=== PATIENT | female | born 1975 | race Caucasian/White ===

== ENCOUNTER 2017-03-03 13:16 | Emergency (ER) | payer MEDICAID ==
[~2017-03-03] VITALS: Ht 165.1 cm; Wt 84.0 kg
[2017-03-03 13:19] VITALS: Ht 165.1 cm; Wt 84.0 kg
[2017-03-03] MEDS ORDERED: KETOROLAC 30 MG INJ IM STA (14:18)
[2017-03-03] MEDS ORDERED: ALBUTEROL 0.083% (NEB) 2.5 MG/3 ML AMP HHN STA (14:18)
--- NOTE | 2017-03-03 15:24 | RADRPT ---
PROCEDURE: XR Chest. CLINICAL INDICATION: Cough, chest wall pain TECHNIQUE: Single frontal view of the chest was obtained COMPARISON: None FINDINGS: No pleural effusion or pneumothorax. No consolidation. Unremarkable cardiomediastinal silhouette. No acute osseous abnormality. IMPRESSION: No acute cardiopulmonary disease. RPTAT: EE Kemal Felix Physician Date Time Electronically viewed and signed by Kemal Felix Physician on 03/03/2017 15:24 /
[2017-03-03] MEDS ORDERED: GUAI118L22 PO (15:53)
[2017-03-03] MEDS ORDERED: IBUP400T22 PO (15:53)
[2017-03-03] MEDS ORDERED: LORA10TA3 PO (15:53)
--- NOTE | 2017-03-06 15:01 | ERD ---
ER Documentation Chief Complaint Date/Time DATE: 03/06/17 TIME: 14:58 Chief Complaint FLULIKE SYMPTOMS, COUGH, FEVER, BODYACHE, SORETHROAT X6 DAYS HPI This is a 41-year-old female presenting to emergency department for cough, fever , generalized body aches, sore throat 6 days. Patient states she has a dry nonproductive cough. No shortness of breath or difficulty breathing. No wheezing. Patient reports tactile fevers at home. Patient has sore throat however no difficulty swallowing or drooling. Patient is eating and drinking normally. Patient did not take any medications at home for this. No sick contacts ROS All systems reviewed and are negative except as per history of present illness. Medications Home Meds Active Scripts Loratadine* (Loratadine*) 10 Mg Tablet, 10 MG PO DAILY, #30 TAB Prov:SANDRA WELLINGTON NP 03/03/17 Ibuprofen* (Motrin*) 400 Mg Tab, 400 MG PO Q6, #30 TAB Prov:SANDRA WELLINGTON NP 03/03/17 Guaifenesin/Codeine Phosphate (CHERATUSSIN AC SYRUP) 118 Ml Liquid, 5 ML PO Q4H Y for COUGH, #118 ML Prov:SANDRA WELLINGTON NP 03/03/17 Allergies Allergies: Coded Allergies: No Known Allergy (Unverified , 03/03/17) PMhx/Soc History of Surgery: No Anesthesia Reaction: No Hx Neurological Disorder: No Hx Respiratory Disorders: No Hx Cardiac Disorders: No Hx Psychiatric Problems: No Hx Miscellaneous Medical Probl: No Hx Alcohol Use: No Hx Substance Use: No Hx Tobacco Use: No Physical Exam Vitals Vital Signs Date Time Temp Pulse Resp B/P Pulse Ox O2 Delivery O2 Flow Rate FiO2 03/03/17 14:34 88 20 98 21 03/03/17 13:19 99.0 92 20 148/100 98 Physical Exam Const: No acute distress, alert Head: Atraumatic Eyes: Normal Conjunctiva ENT: Normal External Ears, Nose and Mouth. TMs normal bilaterally. No erythema or exudates posterior pharynx. No peritonsillar abscess. No muffled voice. Neck: Full range of motion..~ No meningismus. Resp: Clear to auscultation bilaterally. No wheezing, rhonchi or crackles. No stridor or labored breathing. No intercostal retractions. No accessory muscle use. Cardio: Regular rate and rhythm, no murmurs Abd: Soft, non tender, non distended. Normal bowel sounds Skin: No petechiae or rashes Back: No midline or flank tenderness Ext: No cyanosis, or edema Neur: Awake and alert Psych: Normal Mood and Affect Results 24 hrs Current Medications Medications (Trade) Dose Ordered Sig/Jennie Route PRN Reason Start Time Stop Time Status Last Admin Dose Admin Ketorolac Tromethamine (Toradol) 30 mg ONCE STAT IM 03/03/17 14:18 03/03/17 14:20 DC 03/03/17 14:42 Albuterol (Proventil 0.083% (Neb)) 5 mg ONCE STAT HHN 03/03/17 14:18 03/03/17 14:20 DC 03/03/17 14:34 Procedures/MDM [place] [address] Radiology Main Line: [phone] DIAGNOSTIC IMAGING REPORT Patient: ERIKA CARLSON : 1975 Age: 41 Sex: F MR #: [id number] DOS: 03/03/17 1418 Ordering MD: SANDRA CHANCE NP Location: [facility] Room/Bed: PROCEDURE: XR Chest. CLINICAL INDICATION: Cough, chest wall pain TECHNIQUE: Single frontal view of the chest was obtained COMPARISON: None FINDINGS: No pleural effusion or pneumothorax. No consolidation. Unremarkable cardiomediastinal silhouette. No acute osseous abnormality. IMPRESSION: No acute cardiopulmonary disease. MDM: This is a 41-year-old female presenting to emergency department for cough, tactile fevers, generalized body aches and sore throat 6 days. Patient has dry nonproductive cough. No labored breathing. No signs or symptoms of respiratory distress. Oxygen saturation 98% on room air. Patient is afebrile upon arrival to ED. Chest x-ray, influenza swab, albuterol nebulizer and Toradol 30 mg IM ordered. Chest x-ray reviewed by radiologist is unremarkable. Given albuterol nebulizer treatment while in the ED and upon reassessment, patient states breathing has improved. Influenza swab is negative. Vital signs remained stable and patient appears in no acute distress. Low suspicion for pneumonia, pleural effusion, pneumothorax or acute NV. Differential diagnosis includes but not limited to URI, influenza, otitis media , otitis externa, asthma exacerbation, croup, bronchitis, bronchiolitis and costochondritis. Patient is appropriate for outpatient management and will be given prescription for Cheratussin AC, loratadine and ibuprofen. Instructed patient to follow-up with primary care provider in the next 2-3 days for reassessment and additional management. Return to ED for any high fever, chest pain, difficulty breathing, shortness breath, wheezing, vomiting, diarrhea, abdominal pain or any new or worsening symptoms. Patient verbalizes understanding. All questions answered at discharge. Disclaimer: Inadvertent spelling and grammatical errors are likely due to EHR/ dictation software use and do not reflect on the overall quality of patient care. Also, please note that the electronic time recorded on this note does not necessarily reflect the actual time of the patient encounter. Departure Diagnosis: Primary Impression: Upper respiratory infection URI type: unspecified viral URI Qualified Code: J06.9 - Viral upper respiratory tract infection Condition: Stable Patient Instructions: Uri, Viral, No Abx (Adult) [facility] Usted se finley hecho un examen mdico de control que le indica que no est en gabriel condicin que requiera tratamiento urgente en el Departamento de Emergencia. Un estudio ms profundo y el tratamiento de mai condicin pueden esperar sin ningn riesgo hasta que usted sea atendida/o en el consultorio de mai mdico o gabriel cl gabriele. Es responsabilidad suya arreglar gabriel madhuri para el seguimiento del jayesh. MANEJO DE CONDICIONES NO URGENTES EN EL FUTURO 1) Si usted tiene un mdico de atencin primaria: Usted debera llamar a mai mdico de atencin primaria antes de venir al departamento de emergencia. Despus de las horas de consultorio, mai doctor o mai asociado/a est disponible por telfono. El mdico o enfermero de jeanette en el servicio telefnico puede asesorarle por marla medio para atender el problema, o jayesh contrario se puede programar gabriel madhuri. 2) Si usted no tiene un mdico de atencin primaria: Llame al mdico o clnica de referencia que aparece abajo navin las horas de consultorio para hacer gabriel madhuri para que le vean. CLINICAS: [facility] [phone] [facility] [phone] [facility] [phone] [place] [id number] [phone] [place] [address] [phone] [facility] [phone] [address] [facility]. [facility] () Usted se finley hecho un examen mdico de control que le indica que no est en gabriel condicin que requiera tratamiento urgente en el Departamento de Emergencia. Un estudio ms profundo y el tratamiento de mai condicin pueden esperar sin ningn riesgo hasta que usted sea atendida/o en el consultorio de mai mdico o gabriel cl gabriele. Es responsabilidad suya arreglar gabriel madhuri para el seguimiento del jayesh. MANEJO DE CONDICIONES NO URGENTES EN EL FUTURO 1) Si usted tiene un mdico de atencin primaria: Usted debera llamar a mai mdico de atencin primaria antes de venir al departamento de emergencia. Despus de las horas de consultorio, mai doctor o mai asociado/a est disponible por telfono. El mdico o enfermero de jeanette en el servicio telefnico puede asesorarle por marla medio para atender el problema, o jayesh contrario se puede programar gabriel madhuri. 2) Si usted no tiene un mdico de atencin primaria: Llame al mdico o condado institucions de referencia que aparece abajo navin las horas de consultorio para hacer gabriel madhuri para que le vean. SI USTED NO PUEDE PAGAR PARA TANIA UN MEDICO puede ir a: [facility] [address] [place] [address] [facility] [address] [place] [address] [facility] [address] [place] [address] [facility] [address] [place], [place] [id number] Additional Instructions: Llame al doctor MAANA y bel gabriel MADHURI PARA DENTRO DE 2-3 BEDOYA.Dgale a la secretaria que nosotros le instruimos hacer esta madhuri.Avise o llame si mai condicin se empeora antes de la madhuri. Regresa aqui si peor o no mejor. Regresar a ED por fiebre emily, dolor en el pecho, dificultad para respirar, respiracin entrecortada, sibilancias, vmitos, diarrea, dolor abdominal o cualquier sntoma nuevo o que empeora. SANDRA WELLINGTON NP Mar 06, 2017 15:01
== END 2017-03-03 16:55 | disposition home or self-care (01) ==
LOC: FTE 13:16
DX: J06.9 Acute upper respiratory infection, unspecified (principal)
CPT/HCPCS: 71010; 87400; 94664; 96372; J1885; Z7502; Z7610